=== PATIENT | male | born 1975 | race Hispanic/Latino ===

== ENCOUNTER 2018-12-26 11:00 | Emergency (ER) | payer SELFPAY ==
[~2018-12-26] VITALS: Ht 175.3 cm; Wt 90.0 kg
[~2018-12-26 11:00] MED LIST: ADVIL; AMOXICILLIN500 MG PO; ANTI-FUNGAL12 TOP; DIFLUCAN200 MG/100 IJ; FLEXERIL PO; MEDDOSEPAK PO; MOTRIN400 MG PO; NAPROSYN500 MG PO; OMEPRAZOLE20 MG PO; OXYCO/APAP1 TA5 PO; OXYCODONE5 MG PO; PERCOCET1 TA2 PO; PRAVASTATIN SOD10 MG PO; PRAVASTATIN10 MG PO; TRAMADOL HCL50 MG PO; TYLENOL 325MG SUP RE
[2018-12-26] MEDS ORDERED: CEPHALEXIN500 M1 PO (11:13)
[2018-12-26] MEDS ORDERED: MOTRIN400 MG PO (11:55)
[2018-12-26 12:29] VITALS: BP 119/73
== END 2018-12-26 12:29 | disposition home or self-care (01) | DRG 605 ==
LOC: ED 11:00
PROC: 0HQKXZZ Repair Right Lower Leg Skin, External Approach (ICD-10-PCS; principal; 2018-12-26)
DX: S81.811A Laceration without foreign body, right lower leg, initial encounter (principal); W31.1XXA Contact with metalworking machines, initial encounter; Y93.89 Activity, other specified; Y92.009 Unspecified place in unspecified non-institutional (private) residence as the place of occurrence of the external cause

== ENCOUNTER 2019-01-04 17:52 | Emergency (ER) | payer SELFPAY ==
[~2019-01-04] VITALS: Ht 175.3 cm; Wt 80.0 kg
[~2019-01-04 17:52] MED LIST changes: +CEPHALEXIN500 M1 PO
[2019-01-04] MEDS ORDERED: DOXYCYCL HYC100 MG PO ×2 (18:18→18:33)
[2019-01-04 18:30] VITALS: BP 125/68
== END 2019-01-04 18:30 | disposition home or self-care (01) | DRG 603 ==
LOC: ED 17:52
DX: L03.115 Cellulitis of right lower limb (principal); S81.801D Unspecified open wound, right lower leg, subsequent encounter; F17.200 Nicotine dependence, unspecified, uncomplicated; X58.XXXD Exposure to other specified factors, subsequent encounter

== ENCOUNTER 2019-11-18 | Emergency (ER) | payer SELFPAY ==
[~2019-11-18] MED LIST changes: +DOXYCYCL HYC100 MG PO
[2019-11-18 21:19] LABS: HEMATOCRIT 41.4 % (39.0-50.0); HEMOGLOBIN 14.3 g/dl (14.0-18.0); IMMATURE GRANULOCYTES 0.3 % (0.0-5.0); MEAN CELL VOLUME 91.6 fL CALC (80.0-100.0); MEAN CORPUSCULAR HGB 31.6 pG CALC (26.0-32.0); MEAN CORPUSCULAR HGB CONC 34.5 g/L CALC (32.0-36.0); NEUT# 4.54 thou/uL (1.82-7.42); RED BLOOD COUNT 4.52 mill/uL (4.70-6.10); RED CELL DISTRI WIDTH 13.2 % (11.5-15.5)
[2019-11-18 21:26] LABS: BARBITURATES NEGATIVE (NEGATIVE); COCAINE NEGATIVE (NEGATIVE); METHADONE NEGATIVE (NEGATIVE); TETRAHYDROCANNABIONOL NEGATIVE (NEGATIVE); TRICYLIC ANTIDEPRESSANTS NEGATIVE (NEGATIVE)
[2019-11-18 21:27] LABS: OXCYCODONE NEGATIVE (NEGATIVE)
[2019-11-18 21:33] LABS: ALBUMIN 4.3 g/dL (3.2-5.0); ALKALINE PHOSPHATASE 95 u/l (38-126); ANION GAP 11 (6-22 (CALC)); BILIRUBIN, TOTAL 0.3 mg/dL (0.0-1.4); BUN 13 mg/dL (9-20); BUN/CREATININE RATIO 18 (12-20 (CALC)); CARBON DIOXIDE 29 mmol/l (22-30); CHLORIDE 103 mmol/l (95-108); CREATININE 0.7 mg/dL (0.7-1.3); GFR > 60 ML/MIN (>=60 (CALC)); GFR FOR AFR.AMER. > 60 ML/MIN (>=60 (CALC)); POTASSIUM 4.3 mmol/l (3.5-5.1); SGOT/AST 24 u/l (17-59); SODIUM 138 mmol/l (137-146); TOTAL PROTEIN 7.1 g/dL (6.3-8.2)
[2019-12-16] MEDS ORDERED: HYDROCO/APAP1 TA9 PO ×2 (11:10)
[2020-06-10] MEDS ORDERED: PROAIR HFA108 MCG/AC IN (10:25)
[2020-06-10] MEDS ORDERED: LEVAQUIN750 MG PO (10:25)
== END 2019-11-18 22:21 | disposition home or self-care (01) | DRG 103 ==
PROVIDERS: Emergency Medicine
DX: R51 Headache (principal); F19.10 Other psychoactive substance abuse, uncomplicated; F17.210 Nicotine dependence, cigarettes, uncomplicated

== ENCOUNTER 2019-12-16 | Emergency (ER) | payer OTHER ==
[2019-12-16] MEDS ORDERED: HYDROCO/APAP1 TA9 PO (11:10)
[2019-12-16] MEDS ORDERED: no home med (11:58)
[2020-06-09] MEDS ORDERED: LEVAQUIN750 MG PO (10:59)
[2020-06-09] MEDS ORDERED: PROAIR HFA108 MCG/AC IN (10:59)
[2020-06-10] MEDS ORDERED: PROAIR HFA108 MCG/AC IN (10:25)
[2020-06-10] MEDS ORDERED: LEVAQUIN750 MG PO (10:25)
== END 2019-12-16 11:56 | disposition home or self-care (01) | DRG 563 ==
PROC: 2W3DX1Z Immobilization of Left Lower Arm using Splint (ICD-10-PCS; principal; 2019-12-16)
DX: S62.002A Unspecified fracture of navicular [scaphoid] bone of left wrist, initial encounter for closed fracture (principal); F17.210 Nicotine dependence, cigarettes, uncomplicated; W19.XXXA Unspecified fall, initial encounter; Y92.89 Other specified places as the place of occurrence of the external cause; Y99.0 Civilian activity done for income or pay

== ENCOUNTER 2020-06-09 07:24 | Emergency (ER) | payer SELFPAY ==
[~2020-06-09] VITALS: Ht 175.3 cm; Wt 85.0 kg
[~2020-06-09 07:24] MED LIST changes: +HYDROCO/APAP1 TA9 PO; +no home med
[2020-06-09 08:25] LABS: HEMATOCRIT 39.3 % (39.0-50.0); HEMOGLOBIN 13.4 g/dl (14.0-18.0); IMMATURE GRANULOCYTES 0.4 % (0.0-5.0); MEAN CELL VOLUME 92.3 fL CALC (80.0-100.0); MEAN CORPUSCULAR HGB 31.5 pG CALC (26.0-32.0); MEAN CORPUSCULAR HGB CONC 34.1 g/dL CAL (32.0-36.0); NEUT# 3.18 thou/uL (1.82-7.42); RED BLOOD COUNT 4.26 mill/uL (4.70-6.10); RED CELL DISTRI WIDTH 13.3 % (11.5-15.5)
[2020-06-09 08:44] LABS: ALBUMIN 3.9 g/dL (3.2-5.0); ALKALINE PHOSPHATASE 113 u/l (38-126); ANION GAP 11 (6-22 (CALC)); BILIRUBIN, TOTAL 0.3 mg/dL (0.0-1.4); BUN 13 mg/dL (9-20); BUN/CREATININE RATIO 19 (12-20 (CALC)); CARBON DIOXIDE 25 mmol/l (22-30); CHLORIDE 104 mmol/l (95-108); CREATININE 0.7 mg/dL (0.7-1.3); GFR > 60 ML/MIN (>=60 (CALC)); GFR FOR AFR.AMER. > 60 ML/MIN (>=60 (CALC)); POTASSIUM 4.2 mmol/l (3.5-5.1); SGOT/AST 23 u/l (17-59); SODIUM 136 mmol/l (137-146); TOTAL PROTEIN 6.6 g/dL (6.3-8.2)
[2020-06-09 09:45] LABS: URINE BLOOD DIPSTICK NEGATIVE (NEGATIVE); URINE COLOR YELLOW; URINE GLUCOSE - DIPSTICK NEGATIVE (NEGATIVE); URINE KETONE NEGATIVE (NEGATIVE); URINE LEUK ESTERASE NEGATIVE (NEGATIVE); URINE NITRITE - DIPSTICK NEGATIVE (Negative); URINE PH 5.5 (4.5-8.0); URINE PROTEIN - DIPSTICK NEGATIVE (NEG-TRACE); URINE SPECIFIC GRAVITY >=1.030; URINE UROBILINOGEN - DIPSTICK 0.2 E.U./dL (0.2)
[2020-06-09 09:49] LABS: C-REACTIVE PROTEIN 2.9 mg/dL (0-0.9)
[2020-06-09 09:58] LABS: URINE BILIRUBIN - DIPSTICK NEGATIVE (NEGATIVE)
[2020-06-09] MEDS ORDERED: LEVAQUIN750 MG PO ×2 (10:59)
[2020-06-09] MEDS ORDERED: PROAIR HFA108 MCG/AC IN ×2 (10:59)
[2020-06-09 11:21] VITALS: BP 105/63
[2020-06-10] MEDS ORDERED: LEVAQUIN750 MG PO (10:25)
[2020-06-10] MEDS ORDERED: PROAIR HFA108 MCG/AC IN (10:25)
--- NOTE | 2020-06-14 12:57 | NUR ---
Notified patient of positive Covid results via coil tier Darcie Cooper.
== END 2020-06-09 11:24 | disposition home or self-care (01) | DRG 177 ==
LOC: ED 07:24
PROVIDERS: Student in an Organized Health Care Education/Training Program
DX: U07.1 COVID-19 (principal); J12.89 Other viral pneumonia; F17.200 Nicotine dependence, unspecified, uncomplicated